=== PATIENT | male | born 1975 | race Caucasian/White ===

== ENCOUNTER 2025-05-16 16:45 | Emergency (ER) | payer OTHER, SELFPAY ==
[2025-05-16 17:13] VITALS: BP 164/93; PULSE 79; RESP 18; TEMP 36.3; O2SAT 99; BMI 41.3
--- NOTE | 2025-05-16 17:14 | ED_ITS ---
HPI - Wound/Laceration General Stated Complaint: left leg laceration Related Data Allergies Allergy/AdvReac Type Severity Reaction Status Date / Time No Known Allergies Allergy Verified 05/16/25 17:15 Course Course Course Narrative: This is an RME: Additional HPI, ROS, PE not included below will be deferred to primary provider. 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 2.5 cm laceration noted, actively bleeding Plan: wound repair Discharge Plan Discharge Print Language: Syriac
--- OUTSIDE RECORDS SUMMARY | 2025-05-16 18:37 | XMS_ITS | Clinical Summary ---
Author Organization [facility] Address [address] [place] [address] Phone Care Team Providers Care Nuclear Powerplant Supervisor Name Role Phone Michael Nash MD, MPH Primary Care Provider + Medications No known medications Social History Tobacco Use Types Packs/Day Years Used Date Smoking Tobacco: Never Assessed Education Answer Date Recorded Are you interested in more education? Not on avery e 06/02/2023 Are you concerned about learning? Not on file 06/02/2023 No 06/02/2023 No 06/02/2023 Digital Access Answer Date Recorded No 06/02/2023 No 06/02/2023 Reliable internet access at home? Not on file 06/02/2023 Device with a working camera? Not on file Sex and Gender Information Value Date Recorded Sex Assigned at Not on file Legal Sex Male 9:28 PM EDT Gender Identity Not on file Sexual Orientation Not on file Plan of Treatment Not on file Medical Devices Not on file Insurance [facility] PPO BLUE CROSS OUT OF STATE PPO BLUE CROSS OUT OF STATE PPO BLUE CROSS OUT OF STATE PPO BLUE CROSS OUT OF STATE PPO BLUE [place] [facility] PPO [employer] DENTAL Care Teams Nuclear Powerplant Supervisor Relationship Specialty Start Date End Date Killip, Shersten, MD, MPH [address] [place] [address] [email or web address] PCP - General Family Medicine 10/04/23 Additional Source Comments The information contained in this document represents components of the legal health record. It is not the complete legal health record.[facility]
--- OUTSIDE RECORDS SUMMARY | 2025-05-16 18:37 | XMS_ITS | Encounter Summary ---
Author Organization [facility] Address [address] [facility] [address] [place] [phone] Phone Care Team Providers Care Direct Service Professional Name Role Phone Michael Nash MD, MPH Primary Care Provider + Michael Nash MD, MPH Primary Care Provider + Encounter Details Date Type Department Care Team (Late st Contact Info) Description 06/27/2023 Procedure Pass [facility], Ct Scan - [address] [address] Social History Tobacco Use Types Packs/Day Years [...] on file Sexual Orientation Not on file documented as of this encounter Plan of Treatment Not on file documented as of this encounter Visit Diagnoses Not on filedocumented in this encounter Care Teams Direct Service Professional Relationship Specialty Start Date End Date Michael Nash MD, MPH [address] [place] [address] [email or web address] PCP - General Family Medicine 06/02/23 10/03/23 Michael Nash MD, MPH [address] [place] [address] [email or web address] PCP - General Family Medicine 10/04/23 documented as of this encounter Additional Source Comments The information contained in this document represents components of the legal health record. It is not the complete legal health record.[facility]
--- OUTSIDE RECORDS SUMMARY | 2025-05-16 18:37 | XMS_ITS | Encounter Summary ---
Author Organization [facility] Address [address] [facility] [address] [place] [phone] Phone Care Team Providers Care Emergency Veterinary Technician Name Role Phone Michael Nash MD, MPH Primary Care Provider + Michael Nash MD, MPH Primary Care Provider + Reason for Referral * MRI/CAT Scan - Closed Specialty Diagnoses / Procedures Referred By Delonte kiser Referred To Contact Radiology Diagnoses Abdominal pain, unspecified abdominal location Procedures CT Abdomen/Pelvis Kisha Low MD Phone: tel: fax: [email or web address] Referral ID Status Reason Start Date Expiration Date Visits Re quested Visits Authorized [id number] Closed 06/27/2023 1 1 Encounter Details Date Type Department Care Team (Latest Contact Info) Description 06/27/2023 Transcribe Orders Virtual Department [address] [place] [id number] Kisha Low MD [address] [place] [phone] [email or web address] om Abdominal pain, unspecified abdominal location (Primary Dx) Social History Tobacco Use Types Packs/Day Years [...] on file documented as of this encounter Results * CT ABDOMEN/PELVIS WITH CONTRAST (10/18/2023 2:41 PM EST) Anatomical Region Laterality Modality Abdomen, Pelvis Computed Tomogra phy 10/18/2023 8:07 PM EST Impressions 10/19/2023 5:46 AM EST No cause for the reported symptoms identified in the abdomen/pelvis. Narrative 10/19/2023 5:[address] ABDOMEN/PELVIS WITH CONTRAST Referring clinician's provided indication for this examination in Epic: Outside Radiology Order; abdominal pain TECHNIQUE: Multidetector-row CT of the abdomen and pelvis was performed after administration of intravenous contrast using tailored dose modulation techniques. Images were reconstructed in the axial, coronal, and sagittal planes. COMPARISON: None FINDINGS: Lower Chest: Normal. No consolidation or pleural effusions. Liver: No suspicious focal liver lesion. Biliary: No biliary ductal dilatation. Spleen: Normal. No splenomegaly or focal lesions. Pancreas: Normal. No masses or ductal dilatation. Adrenal Glands: Normal. No nodules. Kidneys/Ureters: No solid renal mass or hydronephrosis. Bowel: No bowel obstruction or wall thickening. Normal appendix. Peritoneum/Retroperitoneum: Normal. No masses, pneumoperitoneum, or fluid. Lymph Nodes: Mildly prominent portacaval node measuring 1.4 cm in short axis,, which as an isolated finding this location is likely benign/reactive. Vessels: No abdominal aortic aneurysm. Bones/Soft Tissues: No suspicious focal osseous lesion. Procedure Note Manuel North MD - 10/19/2023 CT ABDOMEN/PELVIS WITH CONTRAST Referring clinician's provided indication for this examination in Epic:Outside Radiology Order; abdominal pain TECHNIQUE: Multidetector-row CT of the abdomen and pelvis was performedafter administration of intravenous contrast using tailored dosemodulation techniques. Images were reconstructed in the axial, coronal,and sagittal planes. COMPARISON: None FINDINGS: Lower Chest: Normal. No consolidation or pleural effusions. Liver: No suspicious focal liver lesion. Biliary: No biliary ductal dilatation. Spleen: Normal. No splenomegaly or focal lesions. Pancreas: Normal. No masses or ductal dilatation. Adrenal Glands: Normal. No nodules. Kidneys/Ureters: No solid renal mass or hydronephrosis. Bowel: No bowel obstruction or wall thickening. Normal appendix. Peritoneum/Retroperitoneum: Normal. No masses, pneumoperitoneum, orfluid. Lymph Nodes: Mildly prominent portacaval node measuring 1.4 cm in shortaxis,, which as an isolated finding this location is likelybenign/reactive. Vessels: No abdominal aortic aneurysm. Bones/Soft Tissues: No suspicious focal osseous lesion. IMPRESSION: No cause for the reported symptoms identified in the abdomen/pelvis. Kisha Low MD IMG CT ABD/PELVIS Final Result documented in this encounter Visit Diagnoses Diagnosis Abdominal pain, unspecified abdominal location- Primary Abdominal pain, unspecified abdominal location documented in this encounter Care Teams Emergency Veterinary Technician Relationship Specialty Start Date End Date Michael Nash MD, MPH [address] [place] [address] [email or web address] PCP - General Family Medicine 06/02/23 10/03/23 Michael Nash MD, MPH [address] [place] [address] [email or web address] PCP - General Family Medicine 10/04/23 documented as of this encounter Additional Source Comments The information contained in this document represents components of the legal health record. It is not the complete legal health record.[facility]
--- OUTSIDE RECORDS SUMMARY | 2025-05-16 18:37 | XMS_ITS | Encounter Summary ---
Author Organization [facility] Address [address] [facility] [address] [place] [phone] Phone Care Team Providers Care Clipper Operator Name Role Phone Michael Nash MD, MPH Primary Care Provider + Michael Nash MD, MPH Primary Care Provider + Encounter Details Date Type Department Care Team (Latest Contact Info) Description 06/01/2023 Transcribe Orders Virtual Department [address] [place] [address] Michael Nash MD, MPH [address] [place], [place] [phone] Left sided abdominal pain (Primary Dx) Social History Tobacco Use Types [...] documented as of this encounter Results * FL BARIUM SWALLOW ESOPHAGRAM DOUBLE CONTRAST (06/07/2023 8:59 AM EDT) Anatomical Region Laterality Modality Chest Computed Radiogr aphy 06/07/2023 10:3 3 AM EDT Impressions 06/07/2023 1:14 PM EDT Small sliding hiatal hernia without spontaneous gastroesophageal reflux, significant dysmotility, or gross mucosal pathology. FLUOROSCOPY TIME: 1 minute 50 seconds NUMBER OF IMAGES: 126 ATTESTATION: Memo Maher as teaching physician, have reviewed the images for this case and if necessary edited the report originally created by Horacio Martinez. Narrative 06/07/2023 1:14 PM EDT BARIUM SWALLOW ESOPHAGRAM DOUBLE CONTRAST HISTORY: Left-sided abdominal pain. COMPARISON: None. OPERATORS: Horacio Martinez SUPERVISING PHYSICIAN: Memo Guerrero TECHNIQUE: Double contrast barium swallow examination was performed with Sodium Carbonate and Barium. FINDINGS: A preliminary lateral view of the neck demonstrates no acute bony pathology. ESOPHAGUS: Motility: Within normal limits. Mucosa: No gross mucosal pathology. Distensibility: Normal. GASTROESOPHAGEAL JUNCTION: Small sliding hiatal hernia elicited from a recumbent TAVARES Valsalva maneuver. TABLET: A standard 13 mm barium tablet passed through the esophagus into the stomach without difficulty. GASTROESOPHAGEAL REFLUX: None observed despite provocative maneuvers. Visualized portion of the stomach and proximal small bowel are unremarkable. Procedure Note Memo Guerrero MD - 06/07/2023 BARIUM SWALLOW ESOPHAGRAM DOUBLE CONTRAST HISTORY: Left-sided abdominal pain. COMPARISON: None. OPERATORS: Horacio Martinez SUPERVISING PHYSICIAN: Memo Guerrero TECHNIQUE: Double contrast barium swallow examination was performed withSodium Carbonate and Barium. FINDINGS: A preliminary lateral view of the neck demonstrates no acute bonypathology. ESOPHAGUS: Motility: Within normal limits. Mucosa: No gross mucosal pathology. Distensibility: Normal. GASTROESOPHAGEAL JUNCTION: Small sliding hiatal hernia elicited from arecumbent TAVARES Valsalva maneuver. TABLET: A standard 13 mm barium tablet passed through the esophagus intothe stomach without difficulty. GASTROESOPHAGEAL REFLUX: None observed despite provocative maneuvers. Visualized portion of the stomach and proximal small bowel areunremarkable. IMPRESSION: Small sliding hiatal hernia without spontaneous gastroesophageal reflux,significant dysmotility, or gross mucosal pathology. FLUOROSCOPY TIME: 1 minute 50 seconds NUMBER OF IMAGES: 126 ATTESTATION: Memo Maher as teaching physician, have reviewed theimages for this case and if necessary edited the report originally createdby Horacio Martinez. Michael Nash MD, MPH [facility] Final Re sult documented in this encounter Visit Diagnoses Diagnosis Left sided abdominal pain- Primary Abdominal pain, unspecified site Left sided abdominal pain Abdominal pain, unspecified site documented in this encounter Care Teams Clipper Operator Relationship Specialty Start Date End Date Michael Nash MD, MPH [address] [place] [address] [email or web address] PCP - General Family Medicine 06/02/23 10/03/23 Michael Nash MD, MPH [address] [place] [address] PCP - General Family Medicine 10/04/23 documented as of this encounter Additional Source Comments The information contained in this document represents components of the legal health record. It is not the complete legal health record.[facility]
[2025-05-16] MEDS: Lidocaine HCl 1%/Epi 1:100,000 10 ML VIAL INFILTRATI (19:08)
--- NOTE | 2025-05-16 19:15 | ED.GENADULT ---
[facility] - General Adult General Chief complaint: Wound/Laceration Stated complaint: left leg laceration Time Seen by Provider: 05/16/25 18:45 Source: patient Mode of arrival: ambulatory Limitations: no limitations History of Present Illness ED Provider: Dr. Richter [facility] narrative: 49-year-old male history of hypertension presented hospital today for a left leg laceration. 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 Patient stated it was bleeding. He states his tetanus shot was up-to-date. Not on a blood thinner currently. Related Data Allergies Allergy/AdvReac Type Severity Reaction Status Date / Time No Known Allergies Allergy Verified 05/16/25 17:15 Review of Systems Review of Systems: Pertinent review of systems as mentioned in HPI. All other system otherwise negative. PMFSH Past Medical History [facility] Narrative: Medical history as mentioned in [facility] Social History Social History Advance Directives: No Advance Directives Information Provided: Yes Physical Exam ED Exam Exam: General: Pleasant, no distress, interacting appropriately Gastrointestinal: Soft, non distended, non tender, non guarding Extremities: Patient has a 3 cm wound on the left posterior calf. It appeared to be arterial bleeding on exam. Skin: Warm and dry Psychiatric: Appropriate mood and thoughts Vital Signs: Vital Signs - 24 hr 05/16/25 17:13 Temperature 97.3 F Pulse Rate 79 Respiratory Rate 18 Blood Pressure 164/93 H Pulse Oximetry 99 Oxygen Delivery Method Room Air BMI result Body Mass Index 41.3 Medications Administered Discontinued Medications Generic Name Dose Route Start Last Admin Trade Name Freq PRN Reason Stop Dose Admin Lidocaine/Epinephrine 10 ml 05/16/25 18:45 05/16/25 19:08 Lidocaine Hcl 1%/Epi 1:100,000 10 Ml Vial INFILTRATI 05/16/25 18:46 10 ml ONCE ONE Administration Medical Decision Making Medical Decision Making [facility] Narrative: 49-year-old male history of hypertension presented hospital today for a left lower extremity only bleed from a steel box toe inserter at laceration. I was notified by nursing staff that patient bleeding is going through the dressing at this time. I placed 2 [id number] stitches into the laceration. I placed 1 simple interrupted stitches in there. Injected with lidocaine with epinephrine. Appears to be hemostatic on exam. We will plan to place a pressure dressing over patient left leg. He states his tetanus shot is up-to-date at this time. Patient appears to be well. Patient will be discharged with instructions to remove the suture in 10-14 days. Differential Diagnosis Differential Diagnoses: The differential diagnosis associated with the presentation includes Arterial laceration, laceration, muscle belly injury Discharge Plan Discharge Clinical Impression: Laceration, Arterial hemorrhage Patient Disposition: Home, Self-Care Instructions: Care For Your Stitches (ED), Stitches Removal (ED) Additional Instructions: Follow up in urgent care, PCP office or return here in 10-14 days for suture removal. I placed 2 figure of 8 stitch and one simple interrupted stitches in. If there is some bleeding apply pressure for 10 minutes. If it still bleeds return to the ED. Watch for signs of infection. Stand Alone Forms: Work/School Release Print Language: Panamanian
[2025-05-16 20:00] VITALS: BP 136/74; PULSE 72; RESP 18; TEMP 36.3; O2SAT 98
[2025-05-16 20:39] VITALS: BP 123/76; PULSE 70; RESP 16; TEMP 36.5; O2SAT 96
== END 2025-05-16 20:40 | disposition home or self-care (01) ==
PROVIDERS: Emergency Provider Student in an Organized Health Care Education/Training Program; PCP Family Medicine
DX: S81.812A Laceration without foreign body, left lower leg, initial encounter (principal); M79.605 Pain in left leg; W26.0XXA Contact with knife, initial encounter; Y93.9 Activity, unspecified; Y92.9 Unspecified place or not applicable; Y99.8 Other external cause status
CPT/HCPCS: 12002; 99283; 99284; J2004

== ENCOUNTER → 2025-05-22 12:42 | Outpatient (BNVA) | payer OTHER, SELFPAY | PROVIDERS: PCP Family Medicine; Visit Provider Emergency Medicine | DX: S81.811A Laceration without foreign body, right lower leg, initial encounter (principal); W26.8XXA Contact with other sharp object(s), not elsewhere classified, initial encounter | CPT/HCPCS: 99203 ==

== ENCOUNTER → 2025-05-29 12:50 | Outpatient (BNVA) | payer OTHER, SELFPAY | PROVIDERS: PCP Family Medicine; Visit Provider Emergency Medicine | DX: Z48.02 Encounter for removal of sutures (principal); S81.811D Laceration without foreign body, right lower leg, subsequent encounter; W26.8XXD Contact with other sharp object(s), not elsewhere classified, subsequent encounter; Z02.79 Encounter for issue of other medical certificate | CPT/HCPCS: 99213 ==